=== PATIENT | female | born 1985 | race African-American/Black ===

== ENCOUNTER 2017-08-28 07:06 | Inpatient (IN) | payer SELFPAY ==
[~2017-08-28] VITALS: Ht 157.5 cm; Wt 59.9 kg
[2017-08-28 07:06] VITALS: BP_SYST 121
[2017-08-28] MEDS ORDERED: MORPHINE 4 MG/ML INJ. SYRINGE IVP ONE ×4 (08:00→12:30)
[2017-08-28] MEDS ORDERED: DIPHENHYDRAMINE INJ 50 MG/ML VIAL IVP ONE ×2 (08:00→09:15)
[2017-08-28] MEDS ORDERED: NACL 0.9% 1,000 ML IV ONE (08:00)
[2017-08-28 08:35] LABS: BASOPHILS # (AUTO) 0.1 K/uL (0.0-0.2); BASOPHILS % (AUTO) 1.2 % (0.0-2.0); EOSINOPHILS # (AUTO) 0.3 K/uL (0.0-0.4); EOSINOPHILS % (AUTO) 3.6 % (0.0-4.0); HEMATOCRIT 28.9 % (36-48); HEMOGLOBIN 9.3 g/dL (12.0-16.0); LYMPHOCYTES # (AUTO) 1.8 K/uL (1.0-5.5); LYMPHOCYTES % (AUTO) 25.1 % (20.5-51.5); MEAN CORPUSCULAR HEMOGLOBIN 28 pg (27-31); MEAN CORPUSCULAR HGB CONC 32 % (32-36); MEAN CORPUSCULAR VOLUME 86 fL (79.0-98.0); MONOCYTES # (AUTO) 0.3 K/uL (0.0-1.0); MONOCYTES % (AUTO) 4.6 % (1.7-9.3); NEUTROPHILS # (AUTO) 4.6 K/uL (1.8-7.7); NEUTROPHILS % (AUTO) 65.5 % (40.0-70.0); PLATELET COUNT (AUTO) 311 K/uL (130-430); RED BLOOD CELL COUNT(AUTO) 3.37 MIL/uL (4.2-6.2); RED CELL DISTRIBUTION WIDTH 16.9 % (9.0-15.0); WHITE BLOOD COUNT (AUTO) 7.1 K/uL (4.8-10.8)
[2017-08-28] MEDS ORDERED: ONDANSETRON HCL 4 MG/2 ML VIAL IVP ONE ×2 (09:00→12:30)
[2017-08-28] MEDS: MAGNESIUM CITRATE 300 ML ORAL SOLUTION PO ONE ×2 (09:12→09:15)
[2017-08-28] MEDS ORDERED: DIPHENHYDRAMINE INJ 50 MG/ML VIAL ONE (09:14)
[2017-08-28 09:24] LABS: PROTHROMBIN TIME 9.8 SECS (9.5-12.5)
[2017-08-28 09:34] LABS: CALCIUM 8.7 mg/dL (8.4-11.0); CREATININE 0.82 mg/dL (0.55-1.30); POTASSIUM 3.8 mmol/L (3.5-5.1)
[2017-08-28 09:42] LABS: ALBUMIN 3.3 g/dL (3.4-4.8); TOTAL BILIRUBIN 0.2 mg/dL (0.0-1.0)
[2017-08-28 10:02] LABS: BILIRUBIN,URINE NEGATIVE (NEGATIVE); BLOOD, URINE NEGATIVE (NEGATIVE); CLARITY/URINE SL HAZY (CLEAR); COLOR,URINE YELLOW (YELLOW); GLUCOSE,URINE NEGATIVE (NEGATIVE); KETONES,URINE NEGATIVE (NEGATIVE); LEUKOCYTE ESTERASE ,URINE NEGATIVE (NEGATIVE); NITRITE, URINE NEGATIVE (NEGATIVE); PH,URINE 7.5 (5.0-8.0); PROTEIN URINE NEGATIVE (NEGATIVE); UROBILINOGEN,URINE 0.2 (0.2-1.0)
[2017-08-28 10:22] LABS: BARBITURATE, URINE NEGATIVE (NEG <=200); BENZODIAZEPINE, URINE NEGATIVE (NEG <=150); CANNABINOID, URINE NEGATIVE (NEG <=50); COCAINE, URINE NEGATIVE (NEG <=150); METHAMPHETAMINES SCREEN,URINE NEGATIVE (NEG <=500); OPIATE, URINE POSITIVE (NEG <=100); PHENCYCLIDINE SCREEN,URINE NEGATIVE (NEG <=25); UR TRICYCLIC ANTIDEPRESSANTS POSITIVE (NEG <=300); URINE AMPHETAMINE NEGATIVE (NEG <=500); URINE METHADONE NEGATIVE (NEG <=200); URINE OXYCODONE SCREEN NEGATIVE (NEG <=100); URINE PROPOXYPHENE SCREEN NEGATIVE (NEG <=300)
[2017-08-28 11:31] VITALS: BP_SYST 116
[2017-08-28] MEDS ORDERED: QUET400T PO (12:58)
[2017-08-28] MEDS ORDERED: SERT50TA PO (12:58)
[2017-08-28] MEDS ORDERED: HYD500 PO (12:58)
[2017-08-28] MEDS ORDERED: HYDR-4100 PO (12:58)
[2017-08-28] MEDS ORDERED: FOLI-43 PO (12:58)
[2017-08-28] MEDS ORDERED: TRAZ-123 PO (12:58)
[2017-08-28] MEDS ORDERED: BEN50 PO (12:58)
[2017-08-28] MEDS ORDERED: FERR-69 PO (12:58)
[2017-08-28] MEDS ORDERED: SERT100T PO (12:58)
[2017-08-28] MEDS ORDERED: HYDR4TAB26 PO (12:58)
[2017-08-28] MEDS ORDERED: ONDA4TAB5 PO (12:58)
[2017-08-28] MEDS ORDERED: DIPHENHYDRAMINE HCL 25 MG CAPSULE PO ONE (13:30)
[2017-08-28] MEDS: HYDROmorphone 1 MG INJ. 1 MG/ML AMPUL IVP PRN ×2 (15:17→19:34)
[2017-08-28] MEDS ORDERED: HYDROcodone/ACETAMIN 10-325 MG TAB PO SCH (15:30)
[2017-08-28] MEDS ORDERED: DIPHENHYDRAMINE HCL 50 MG CAPSULE PO SCH (15:30)
[2017-08-28 16:45] VITALS: BP_SYST 122
[2017-08-28] MEDS ORDERED: MILK OF MAGNESIA 30 ML UDC PO SCH (18:00)
[2017-08-28] MEDS ORDERED: DIPHENHYDRAMINE HCL 50 MG CAPSULE PO PRN (18:00)
[2017-08-28] MEDS ORDERED: ACETAMINOPHEN 325 MG TABLET PO PRN (18:00)
[2017-08-28] MEDS ORDERED: ONDANSETRON HCL 4 MG/2 ML VIAL IVP PRN (18:00)
[2017-08-28] MEDS ORDERED: ALBUTER INH PRN (18:00)
[2017-08-28] MEDS ORDERED: SERTRALINE HCL 50 MG TABLET PO SCH (18:00)
[2017-08-28 20:00] VITALS: BP_SYST 117
[2017-08-28] MEDS: PANTOPRAZOLE SODIUM 40 MG TAB PO SCH (20:16)
[2017-08-28] MEDS: traZODone HCL 50 MG TABLET (DESYREL) PO SCH (20:16)
[2017-08-28] MEDS: KCL 20 mEq in NS 1000 mL 1,000 ML IV SCH (20:17)
[2017-08-28] MEDS: QUEtiapine FUMARATE 100 MG TABLET PO SCH (20:17)
[2017-08-28] MEDS: HYDROXYUREA 500 MG CAPSULE (HYDREA) PO SCH (20:17)
[2017-08-28] MEDS ORDERED: SENNOSIDES/DOCUSATE SODIUM 1 TAB TABLET(SENOKOT-S) PO SCH (21:00)
[2017-08-28 22:31] VITALS: BP_SYST 117
[2017-08-29 00:29] VITALS: BP_SYST 98
[2017-08-29] MEDS: HYDROmorphone 1 MG INJ. 1 MG/ML AMPUL IVP PRN ×3 (04:51→13:14)
[2017-08-29] MEDS: KCL 20 mEq in NS 1000 mL 1,000 ML IV SCH ×2 (06:49→14:26)
[2017-08-29 07:31] LABS: BASOPHILS % (AUTO) 0.5 % (0.0-2.0); EOSINOPHILS # (AUTO) 0.2 K/uL (0.0-0.4); EOSINOPHILS % (AUTO) 4.4 % (0.0-4.0); HEMATOCRIT 28.9 % (36-48); HEMOGLOBIN 9.3 g/dL (12.0-16.0); LYMPHOCYTES # (AUTO) 1.8 K/uL (1.0-5.5); LYMPHOCYTES % (AUTO) 34.8 % (20.5-51.5); MEAN CORPUSCULAR HEMOGLOBIN 28 pg (27-31); MEAN CORPUSCULAR HGB CONC 32 % (32-36); MEAN CORPUSCULAR VOLUME 86 fL (79.0-98.0); MONOCYTES # (AUTO) 0.3 K/uL (0.0-1.0); MONOCYTES % (AUTO) 5.7 % (1.7-9.3); NEUTROPHILS # (AUTO) 2.8 K/uL (1.8-7.7); NEUTROPHILS % (AUTO) 54.6 % (40.0-70.0); PLATELET COUNT (AUTO) 300 K/uL (130-430); RED BLOOD CELL COUNT(AUTO) 3.36 MIL/uL (4.2-6.2); RED CELL DISTRIBUTION WIDTH 17.3 % (9.0-15.0); WHITE BLOOD COUNT (AUTO) 5.1 K/uL (4.8-10.8)
[2017-08-29 07:44] LABS: CALCIUM 8.9 mg/dL (8.4-11.0); CREATININE 0.84 mg/dL (0.55-1.30); POTASSIUM 3.7 mmol/L (3.5-5.1)
[2017-08-29 07:45] LABS: ALBUMIN 2.9 g/dL (3.4-4.8); THYROID STIMULATING HORMONE 0.17 uIu/mL (0.34-4.82); TOTAL BILIRUBIN 0.2 mg/dL (0.0-1.0)
[2017-08-29 08:00] VITALS: BP_SYST 134
[2017-08-29] MEDS: HYDROXYUREA 500 MG CAPSULE (HYDREA) PO SCH (08:52)
[2017-08-29] MEDS: traZODone HCL 50 MG TABLET (DESYREL) PO SCH (08:53)
[2017-08-29] MEDS: PANTOPRAZOLE SODIUM 40 MG TAB PO SCH (08:53)
[2017-08-29] MEDS: QUEtiapine FUMARATE 100 MG TABLET PO SCH (08:53)
[2017-08-29] MEDS ORDERED: FOLIC ACID 1 MG TABLET PO SCH (09:00)
[2017-08-29] MEDS ORDERED: SERTRALINE HCL 50 MG TABLET PO SCH (09:00)
[2017-08-29 12:30] VITALS: BP_SYST 98
[2017-08-29 16:30] VITALS: BP_SYST 151
[2017-08-29] MEDS ORDERED: HYDROmorphone 2 MG TAB PO PRN (17:00)
[2017-08-29 18:07] VITALS: BP_SYST 151
== END 2017-08-29 18:25 | disposition home or self-care (01) | DRG 812 ==
LOC: SED 07:06 → STU 10:45 → SMU 08-29 06:36
PROVIDERS: ADMIT Internal Medicine; ATTEND Internal Medicine
DX: D57.00 Hb-SS disease with crisis, unspecified (principal); E44.1 Mild protein-calorie malnutrition; F32.9 Major depressive disorder, single episode, unspecified; K59.00 Constipation, unspecified; F41.9 Anxiety disorder, unspecified; J45.909 Unspecified asthma, uncomplicated; Z90.49 Acquired absence of other specified parts of digestive tract; Z88.8 Allergy status to other drugs, medicaments and biological substances; Z68.24 Body mass index [BMI] 24.0-24.9, adult
CPT/HCPCS: 36415; 74018; 80053; 80307; 81003; 83880; 84439; 84443-TC; 84484; 85025; 85610-TC; 85730-TC; 87081; 93005; 96365; 96374; 96375; 96376; 99285; J1170; J1200; J2270; J2405; J3480; J7030